=== PATIENT | female | born 1955 | race Caucasian/White ===

== ENCOUNTER → 2016-09-27 | Outpatient (CLI) | payer BC | END | disposition home or self-care (01) | LOC: GMAB 10:38 | PROVIDERS: ATTEND Family Medicine | DX: R53.83 Other fatigue (principal); Z00.01 Encounter for general adult medical examination with abnormal findings; N95.9 Unspecified menopausal and perimenopausal disorder; E55.9 Vitamin D deficiency, unspecified ==

== ENCOUNTER → 2017-04-04 | Outpatient (CLI) | payer BC | END | disposition home or self-care (01) | LOC: LAB.O 10:55 | PROVIDERS: ATTEND Physician Assistant Medical | DX: N95.9 Unspecified menopausal and perimenopausal disorder (principal); E55.9 Vitamin D deficiency, unspecified ==

== ENCOUNTER → 2017-09-20 | Outpatient (CLI) | payer BC | LOC: LAB.O 08:49 | PROVIDERS: ATTEND Physician Assistant Medical | DX: N95.9 Unspecified menopausal and perimenopausal disorder (principal); E55.9 Vitamin D deficiency, unspecified; R53.83 Other fatigue ==

== ENCOUNTER → 2018-03-12 | Outpatient (CLI) | payer BC | LOC: LAB.O 11:26 | PROVIDERS: ATTEND Physician Assistant Medical | DX: N95.9 Unspecified menopausal and perimenopausal disorder (principal); E55.9 Vitamin D deficiency, unspecified; R53.83 Other fatigue ==

== ENCOUNTER → 2018-08-29 | Outpatient (CLI) | payer BC | LOC: LAB.O 08:56 | PROVIDERS: ATTEND Physician Assistant Medical | DX: R53.83 Other fatigue (principal); E55.9 Vitamin D deficiency, unspecified; N95.9 Unspecified menopausal and perimenopausal disorder ==

== ENCOUNTER → 2018-11-21 | Outpatient (CLI) | payer BC | LOC: LAB.O 13:45 | PROVIDERS: ATTEND Family Medicine | DX: R19.7 Diarrhea, unspecified (principal) ==

== ENCOUNTER → 2018-11-28 | Outpatient (CLI) | payer BC | LOC: LAB.O 14:30 | PROVIDERS: ATTEND Family Medicine | DX: R19.7 Diarrhea, unspecified (principal) ==

== ENCOUNTER → 2019-03-26 | Outpatient (CLI) | payer BC | LOC: LAB.O 09:57 | PROVIDERS: ATTEND Physician Assistant Medical | DX: N95.9 Unspecified menopausal and perimenopausal disorder (principal); E55.9 Vitamin D deficiency, unspecified; R53.83 Other fatigue ==

== ENCOUNTER → 2019-06-20 | Outpatient (CLI) | payer BC | LOC: SL 20:20 | PROVIDERS: ATTEND Family Medicine | DX: G47.33 Obstructive sleep apnea (adult) (pediatric) (principal) ==

== ENCOUNTER → 2019-09-02 | Outpatient (CLI) | payer BC | LOC: LAB.O 09:56 | PROVIDERS: ATTEND Family Medicine | DX: N95.9 Unspecified menopausal and perimenopausal disorder (principal); E55.9 Vitamin D deficiency, unspecified; R53.83 Other fatigue; I10 Essential (primary) hypertension; Z79.899 Other long term (current) drug therapy ==

== ENCOUNTER → 2020-02-24 | Outpatient (CLI) | payer BC | LOC: GMAL 14:21 | PROVIDERS: ATTEND Family Medicine | DX: R53.83 Other fatigue (principal); N95.9 Unspecified menopausal and perimenopausal disorder; E55.9 Vitamin D deficiency, unspecified ==